=== PATIENT | female | born 1990 | race Asian ===

== ENCOUNTER 2021-05-18 02:44 | Inpatient (IN) ==
[2021-05-18] MEDS ORDERED: BETAMETH SOD PHOS/ACETATE IA 6 MG/ML IM STA (03:31)
[2021-05-18] MEDS ORDERED: LACTATED RINGER'S 1,000 ML IV PRN (03:31)
[2021-05-18 04:18] LABS: Hematocrit (blood only) 38.1 % (37-47); Hemoglobin 13.1 g/dL (12.0-16.0); Mean Corpuscular Hemoglobin 31.3 pg (25-34); Mean Corpuscular Hgb Conc 34.4 g/dL (32-36); Mean Corpuscular Volume 90.9 fL (80-100); Platelet Count 276 K/uL (130-400); RDW Standard Deviation 42.3 fL (36.4-46.3); Red Blood Count 4.19 M/uL (4.2-5.4); White Blood Count 13.67 K/uL (4.8-10.8)
[2021-05-18] MEDS ORDERED: MAG SULFATE 6GM BOLUS FROM BAG IV ONE (04:39)
[2021-05-18] MEDS ORDERED: MAGNESIUM SULFATE 40GM / WTR 1,000 ML BAG IV ONE (04:46)
--- NOTE | 2021-05-18 04:56 | History & Physical Report ---
Date of Service May 18, 2021 Assessment & Plan Plan: Transfer to [facility] L&D I spoke with Dr. Yao MURPHY fellow who is accepting patient onto Dr. Hansen's service Admission and Anticipated Discharge Date Admission Date: May 18, 2021 History of Present Illness Chief Complaint: ruptured membranes Primary Care Provider: Terri Bonner, DO 31 F P0000 at 31.1 weeks with PPROM today at 0120 clear fluid without regular contractions. Feels good movement and no vaginal bleeding at all. Patient notes some round ligament like cramping but no active contractions. No history of recent trauma or any intercourse. No urinary symptoms or GI symptoms. No current headache or any visual disturbances. No history of any labor or any problems. Has had complete Covid vaccine series Pfizer. History of migraine and depression on medication otherwise no other complications. Good weight gain during and taking her PNV. Allergies Allergy/AdvReac Type Severity Reaction Status Date / Time latex Allergy Hives Verified 05/18/21 03:16 nickel Allergy Hives Verified 05/18/21 03:16 Home Medications Medication Instructions Recorded Confirmed Type drospirenone 3 mg-ethinyl 1 tab PO DAILY 12/27/19 05/18/21 History estradiol 0.02 mg tablet (Gianvi (28)) guanfacine 2 mg tablet,extended 2 mg PO DAILY 12/27/19 05/18/21 History release 24 hr lisdexamfetamine 10 mg capsule 10 - 30 mg PO DAILY 12/27/19 05/18/21 History (Vyvanse) ondansetron 4 mg disintegrating 4 mg PO Q6H PRN #15 tab 12/27/19 05/18/21 Rx tablet quetiapine 50 mg tablet (Seroquel) 50 mg PO DAILY 12/27/19 05/18/21 History sertraline 50 mg tablet 50 mg PO DAILY 12/27/19 05/18/21 History Patient History Medical History No pertinent past medical history Social History Smoking Status: Never smoker Second Hand Exposure: No; Hx Alcohol Use: No Hx Substance Use: No Preferred Language: Lao Communication Ability: Effective Global Climate Change Researcher Required: No Beliefs That Will Affect Care: None marital status: Current Living Situation: Spouse Other Information That Helps Us Care for You: No Feels Safe at Home: Yes Safety Concerns: Feels Safe At This Time Immunizations: Covid vaccine series completed with CSS99 OB History primigravida [employer]IATE History negative Review of Systems All systems reviewed & are unremarkable except as noted in HPI & below Physical Exam Constitutional: WD/WN, vitals as above comfortable Respiratory: normal respiratory effort, lungs clear to auscultation Cardiovascular: RRR, no murmur, no edema Gastrointestinal (Abdomen): Inspection/Auscultation: abdomen normal to inspection abdomen soft and non-tender, no RUQ pain or any tenderness. Skin: no rashes, warm and dry no edema. Negative Jason's Neurologic: patellar DTR's 2+ bilat, sensation intact Psychiatric: A+Ox3, euthymic affect Genitourinary: no vaginal lesions, no adnexal mass OB Exam Abdomen: + fundal height, + heart tones and + irregular contractions Manual OB Exam: + cervical dilation fingertip, + cervical effacement 20%, + station high and + amniotic fluid clear Results & Data ([facility]) Vital Signs (Past 12 Hours) Vital Signs Temp Pulse Resp BP 05/18/21 03:04 90 119/78 05/18/21 02:57 37.0 C 18 05/18/21 02:55 37.0 C Laboratory Results Laboratory Results - last 72 hr 05/18/21 05/18/21 05/18/21 03:55 04:27 04:27 WBC 13.67 H RBC 4.19 L Hgb 13.1 Hct 38.1 MCV 90.9 MCH 31.3 MCHC 34.4 RDW Std Deviation 42.3 RDW Coeff of Daniele 13.0 Plt Count 276 MPV 10.0 COVID-19 Eval [facility] SARS-CoV-2, RNA, NAAT NEGATIVE Medications Administered Betamethasone 12 mg IM Magnesium sulfate 6 grams IV loading dose Code Status & VTE Plan VTE Prophylaxis Plan VTE Prophylaxis will be ordered: No
[2021-05-18] MEDS ORDERED: ONDANSETRON INJ 2 MG/ML 2 ML VIAL IV PRN ×2 (05:27)
[2021-05-18] MEDS ORDERED: ONDANSETRON INJ 2 MG/ML 2 ML VIAL ONE (05:30)
== END 2021-05-18 06:10 | disposition short-term general hospital (02) | DRG 833 ==
LOC: OPB 02:44 → 4S1 02:50